=== PATIENT | male | born 1995 ===

== ENCOUNTER → 2023-04-04 | Emergency (ER) | payer OTHER ==
[~2023-04-04] VITALS: Ht 167.6 cm; Wt 59.4 kg
[~2023-04-04] MED LIST: CLONIDINE1 EACH TD; GENTAMICIN SULF30 GM TOP; KEPPRA XR500 MG; RISPERDAL1 MG PO; ZYRTEC10 MG PO; [UNRECOGNIZED DRUG - OTHER]
== END | disposition home or self-care (01) ==
LOC: ER 08:07
DX: S00.212A Abrasion of left eyelid and periocular area, initial encounter (principal); X58.XXXA Exposure to other specified factors, initial encounter; Y93.89 Activity, other specified; Y92.89 Other specified places as the place of occurrence of the external cause; Y99.8 Other external cause status